=== PATIENT | male | born 1970 | race Two or more races ===

== ENCOUNTER 2017-12-21 16:41 | Emergency (ER) | payer OTHER ==
[~2017-12-21] VITALS: Ht 165.1 cm; Wt 81.6 kg
[2017-12-21 17:05] VITALS: Ht 165.1 cm; Wt 81.6 kg
[2017-12-21 20:25] VITALS: BP 126/93
== END 2017-12-21 20:25 | disposition home or self-care (01) ==
LOC: ED 16:41
DX: S16.1XXA Strain of muscle, fascia and tendon at neck level, initial encounter (principal); S39.012A Strain of muscle, fascia and tendon of lower back, initial encounter; S20.212A Contusion of left front wall of thorax, initial encounter; V43.92XA Unspecified car occupant injured in collision with other type car in traffic accident, initial encounter; Y93.89 Activity, other specified; Y92.89 Other specified places as the place of occurrence of the external cause; Y99.8 Other external cause status